=== PATIENT | male | born 1985 | race Two or more races ===

== ENCOUNTER 2016-12-04 20:17 | Emergency (ER) | payer MEDICAID, OTHER ==
[~2016-12-04] VITALS: Ht 165.1 cm; Wt 97.2 kg
[2016-12-04 20:25] VITALS: BP 114/84; PULSE 116; RESP 20; TEMP 98.8; O2SAT 96
[2016-12-04] MEDS ORDERED: SODIUM CHLORIDE 0.9% FLUSH 5 ML FLUSH IVF PRN (20:45)
[2016-12-04] MEDS ORDERED: SODIUM CHLOR 0.9% 1000 ML INJ 1,000 ML IV ONE (20:45)
[2016-12-04] MEDS ORDERED: PANTOPRAZOLE SODIUM 40 MG VIAL IV PUSH ONE (20:45)
[2016-12-04 21:07] LABS: AUTOMATED NEUTROPHIL # 8.4 TH/MM3 (1.8-7.7); BASOPHIL # 0.1 TH/MM3 (0-0.2); BASOPHIL % 0.5 % (0.0-2.0); EOSINOPHIL # 0.1 TH/MM3 (0-0.4); EOSINOPHIL % 1.2 % (0.0-4.0); HEMATOCRIT 44.9 % (39.0-51.0); HEMO FLAGS DIFF FINAL; LYMPH % 13.3 % (9.0-44.0); LYMPHOCYTE # 1.4 TH/MM3 (1.0-4.8); MEAN CELL VOLUME 90.5 FL (80.0-100.0); MEAN CORPUSCULAR HEMOGLOBIN 31.6 PG (27.0-34.0); MEAN CORPUSCULAR HGB CONC 34.9 % (32.0-36.0); MONO % 7.9 % (0.0-8.0); NEUT % 77.1 % (16.0-70.0); PLATELET COUNT 251 TH/MM3 (150-450); RED BLOOD COUNT 4.96 MIL/MM3 (4.50-5.90); RED CELL DISTRIBUTION WIDTH 12.3 % (11.6-17.2); WHITE BLOOD COUNT 10.9 TH/MM3 (4.0-11.0)
[2016-12-04 21:17] LABS: CHLORIDE 104 MEQ/L (98-107); POTASSIUM 3.4 MEQ/L (3.5-5.1); SODIUM (NA) 140 MEQ/L (136-145)
[2016-12-04 21:22] VITALS: BP 127/81; PULSE 94; RESP 20; O2SAT 98
[2016-12-04 21:22] LABS: ANION GAP 10 MEQ/L (5-15); BICARBONATE 26.2 MEQ/L (21.0-32.0); BLOOD UREA NITROGEN 12 MG/DL (7-18)
[2016-12-04 21:23] VITALS: BP 127/81; PULSE 94; RESP 20; O2SAT 98
[2016-12-04 21:25] LABS: ALT (GPT) 77 U/L (12-78); AST (GOT) 30 U/L (15-37); GLOMERULAR FILTRATION RATE 71 ML/MIN (>89)
[2016-12-04 21:26] LABS: TOTAL BILIRUBIN ADULT 1.4 MG/DL (0.2-1.0)
[2016-12-04 21:27] LABS: ALKALINE PHOSPHATASE 67 U/L (45-117)
[2016-12-04] MEDS ORDERED: IOHEXOL 350 MG/ML 10 ML VIAL (for RAD DIAG) IV ONE (22:06)
--- NOTE | 2016-12-04 22:42 | RADHPO ---
EXAM DATE/TIME: 12/04/2016 21:09 [facility] COMPARISON: No previous studies available for comparison. INDICATIONS : Complains of abdomen pain and blood in stool. MEDICAL HISTORY : None. SURGICAL HISTORY : None. ENCOUNTER: Initial ACUITY: 1 week PAIN SCORE: 10/10 LOCATION: Bilateral chest FINDINGS: A single view of the chest demonstrates the lungs to be symmetrically aerated without evidence of mas s, infiltrate or effusion. The cardiomediastinal contours are mildly prominent. Osseous structures a re intact. CONCLUSION: 1. Minimal basilar atelectasis. No effusion or pneumothorax. Mild cardiomegaly. Vinny Salter MD on December 04, 2016 at 22:40 Board Certified Radiologist. This report was verified electronically.
[2016-12-04 22:54] LABS: BLOOD, URINE SMALL (NEG); GLUCOSE,URINE NEG (NEG); KETONE, URINE NEG (NEG); NITRITE,URINE NEG (NEG); PH, URINE 5.5 (5.0-8.5)
--- NOTE | 2016-12-04 23:14 | RADHPO ---
EXAM DATE/TIME: 12/04/2016 21:50 [facility] COMPARISON: No previous studies available for comparison. INDICATIONS : Diffuse abdomen pain. IV CONTRAST: 81 cc Omnipaque 350 (iohexol) IV ORAL CONTRAST: No oral contrast ingested. RADIATION DOSE: 17.41 CTDIvol (mGy) MEDICAL HISTORY : None SURGICAL HISTORY : None. ENCOUNTER: Initial ACUITY: 1 day PAIN SCALE: 5/10 LOCATION: abdomen TECHNIQUE: Volumetric scanning of the abdomen and pelvis was performed. Using automated exposure control and ad justment of the mA and/or kV according to patient size, radiation dose was kept as low as reasonably achievable to obtain optimal diagnostic quality images. FINDINGS: Lung bases are clear. Mild fatty liver. Spleen, adrenals, kidneys and pancreas are unremarkable. No c alcified gallstones or biliary ductal dilatation. There is mural thickening of the colon especially the left colon characteristic of a mild colitis. CONCLUSION: 1. Mild mural thickening of the colon most characteristic of a mild colitis. Vinny Salter MD on December 04, 2016 at 23:09 Board Certified Radiologist. This report was verified electronically.
[2016-12-04 23:17] LABS: METHOD OF COLLECTION CLEAN CATCH; URINE COLOR YELLOW (YELLW/STRAW)
[2016-12-04 23:18] LABS: MUCUS URINE FEW /lpf (OCC); SQUAMOUS EPITHELIAL CELL URINE 0-5 /hpf (0-5)
[2016-12-04 23:19] LABS: WBC, URINE 0-2 /hpf (0-5)
[2016-12-04 23:20] LABS: COMMENT (UR) CULT NOT INDICATED; CULTURE IF INDICATED CULT NOT INDICATED
[2016-12-04] MEDS ORDERED: METR-1 PO (23:21)
--- NOTE | 2016-12-04 23:21 | PD ---
HPI Chief Complaint: GI Complaint Time Seen by Provider: 20:44 Travel History International Travel<30 days: No Contact w/Intl Traveler<30days: No Traveled to known affect area: No History of Present Illness HPI 31-year-old male presents to the emergency department for complaint of one week of intermittent red blood per rectum. Patient states discomfort is mild. It patient denies fever chills nausea vomiting or abdominal pain. Patient denies injury. Patient denies personal history of inflammatory bowel disease Crohn's ulcer colitis or family history of inflammatory bowel disease. Patient's had no dysuria frequency or urgency. No weight loss. Patient is unsure of precipitating event. Patient denies dietary indiscretion well water ingestion or foreign travel. Recent antibiotic use for diagnosis of folliculitis. [facility] Past Medical History Narrative Medical ADHD folliculitis no surgeries tobacco use nursing notes reviewed ADHD: Yes Diminished Hearing: No Integumentary: Yes (HX FOLLICULITIS) Tetanus Vaccination: Unknown Influenza Vaccination: No Social History Alcohol Use: No Tobacco Use: Yes Substance Use: No Allergies-Medications (Allergen,Severity, Reaction): Coded Allergies: No Known Allergies (Unverified , 12/04/16) Reported Meds & Prescriptions Reported Meds & Active Scripts Active Flagyl (Metronidazole) 500 Mg Tab 500 Mg PO QID 7 Days Review of Systems Except as stated in HPI: all other systems reviewed are Neg Physical Exam Narrative GENERAL: Well-developed well-nourished male in no acute distress no respiratory distress SKIN: Warm and dry. HEAD: Normocephalic. EYES: No scleral icterus. No injection or drainage. NECK: Supple, trachea midline. No JVD or lymphadenopathy. CARDIOVASCULAR: Regular rate and rhythm without murmurs, gallops, or rubs. RESPIRATORY: Breath sounds equal bilaterally. No accessory muscle use. GASTROINTESTINAL: Abdomen soft, non-tender, nondistended. Rectal exam: Normal sphincter tone no fissure no hemorrhoids scant dark blood noted on exam glove MUSCULOSKELETAL: No cyanosis, or edema. BACK: Nontender without obvious deformity. No CVA tenderness. Data Data Last Documented VS Vital Signs Date Time Temp Pulse Resp B/P Pulse Ox O2 Delivery O2 Flow Rate FiO2 12/04/16 23:45 91 20 116/57 98 12/04/16 20:25 98.8 Orders Complete Blood Count With Diff (12/04/16 20:44) Comprehensive Metabolic Panel (12/04/16 20:44) Urinalysis - C+S If Indicated (12/04/16 20:44) Lipase (12/04/16 20:44) Ct Abd/Pel W Iv Contrast(Rout) (12/04/16 ) Iv Access Insert/Monitor (12/04/16 20:44) Ecg Monitoring (12/04/16 20:44) Oximetry (12/04/16 20:44) Sodium Chloride 0.9% Flush (Ns Flush) (12/04/16 20:45) C Diff Toxin Pcr (12/04/16 20:44) Enteric Path (Stool) (12/04/16 20:44) Chest, Single Ap (12/04/16 20:44) Sodium Chlor 0.9% 1000 Ml Inj (Ns 1000 M (12/04/16 20:45) Pantoprazole Inj (Protonix Inj) (12/04/16 20:45) Iohexol 350 Inj (Omnipaque 350 Inj) (12/04/16 22:06) Labs Laboratory Tests Test 12/04/16 12/04/16 12/04/16 20:55 22:40 23:50 White Blood Count 10.9 TH/MM3 Red Blood Count 4.96 MIL/MM3 Hemoglobin 15.7 GM/DL Hematocrit 44.9 % Mean Corpuscular Volume 90.5 FL Mean Corpuscular Hemoglobin 31.6 PG Mean Corpuscular Hemoglobin 34.9 % Concent Red Cell Distribution Width 12.3 % Platelet Count 251 TH/MM3 Mean Platelet Volume 7.7 FL Neutrophils (%) (Auto) 77.1 % Lymphocytes (%) (Auto) 13.3 % Monocytes (%) (Auto) 7.9 % Eosinophils (%) (Auto) 1.2 % Basophils (%) (Auto) 0.5 % Neutrophils # (Auto) 8.4 TH/MM3 Lymphocytes # (Auto) 1.4 TH/MM3 Monocytes # (Auto) 0.9 TH/MM3 Eosinophils # (Auto) 0.1 TH/MM3 Basophils # (Auto) 0.1 TH/MM3 CBC Comment DIFF FINAL Differential Comment Sodium Level 140 MEQ/L Potassium Level 3.4 MEQ/L Chloride Level 104 MEQ/L Carbon Dioxide Level 26.2 MEQ/L Anion Gap 10 MEQ/L Blood Urea Nitrogen 12 MG/DL Creatinine 1.20 MG/DL Estimat Glomerular Filtration 71 ML/MIN Rate Random Glucose 102 MG/DL Calcium Level 8.6 MG/DL Total Bilirubin 1.4 MG/DL Aspartate Amino Transf 30 U/L (AST/SGOT) Alanine Aminotransferase 77 U/L (ALT/SGPT) Alkaline Phosphatase 67 U/L Total Protein 7.9 GM/DL Albumin 4.0 GM/DL Lipase 110 U/L Urine Collection Type CLEAN CATCH Urine Color YELLOW Urine Turbidity CLEAR Urine pH 5.5 Urine Specific [place] GREATER THAN 1.035 Urine Protein NEG mg/dL Urine Glucose (UA) NEG mg/dL Urine Ketones NEG mg/dL Urine Occult Blood SMALL Urine Nitrite NEG Urine Bilirubin NEG Urine Leukocyte Esterase NEG Urine RBC /hpf Urine WBC 0-2 /hpf Urine Squamous Epithelial 0-5 /hpf Cells Urine Mucus FEW /lpf Microscopic Urinalysis Comment CULT NOT INDICATED Stool C. difficile Toxin (PCR) NEGATIVE Stl C. difficile Toxin PRESUMPTIVE Epiderm 027 NEGATIVE MDM Medical Decision Making Medical Screen Exam Complete: Yes Emergency Medical Condition: Yes Medical Record Reviewed: Yes Interpretation(s) Laboratory Tests Test 12/04/16 12/04/16 12/04/16 20:55 22:40 23:50 White Blood Count 10.9 TH/MM3 Red Blood Count 4.96 MIL/MM3 Hemoglobin 15.7 GM/DL Hematocrit 44.9 % Mean Corpuscular Volume 90.5 FL Mean Corpuscular Hemoglobin 31.6 PG Mean Corpuscular Hemoglobin 34.9 % Concent Red Cell Distribution Width 12.3 % Platelet Count 251 TH/MM3 Mean Platelet Volume 7.7 FL Neutrophils (%) (Auto) 77.1 % Lymphocytes (%) (Auto) 13.3 % Monocytes (%) (Auto) 7.9 % Eosinophils (%) (Auto) 1.2 % Basophils (%) (Auto) 0.5 % Neutrophils # (Auto) 8.4 TH/MM3 Lymphocytes # (Auto) 1.4 TH/MM3 Monocytes # (Auto) 0.9 TH/MM3 Eosinophils # (Auto) 0.1 TH/MM3 Basophils # (Auto) 0.1 TH/MM3 CBC Comment DIFF FINAL Differential Comment Sodium Level 140 MEQ/L Potassium Level 3.4 MEQ/L Chloride Level 104 MEQ/L Carbon Dioxide Level 26.2 MEQ/L Anion Gap 10 MEQ/L Blood Urea Nitrogen 12 MG/DL Creatinine 1.20 MG/DL Estimat Glomerular Filtration 71 ML/MIN Rate Random Glucose 102 MG/DL Calcium Level 8.6 MG/DL Total Bilirubin 1.4 MG/DL Aspartate Amino Transf 30 U/L (AST/SGOT) Alanine Aminotransferase 77 U/L (ALT/SGPT) Alkaline Phosphatase 67 U/L Total Protein 7.9 GM/DL Albumin 4.0 GM/DL Lipase 110 U/L Urine Collection Type CLEAN CATCH Urine Color YELLOW Urine Turbidity CLEAR Urine pH 5.5 Urine Specific [place] GREATER THAN 1.035 Urine Protein NEG mg/dL Urine Glucose (UA) NEG mg/dL Urine Ketones NEG mg/dL Urine Occult Blood SMALL Urine Nitrite NEG Urine Bilirubin NEG Urine Leukocyte Esterase NEG Urine RBC /hpf Urine WBC 0-2 /hpf Urine Squamous Epithelial 0-5 /hpf Cells Urine Mucus FEW /lpf Microscopic Urinalysis Comment CULT NOT INDICATED Stool C. difficile Toxin (PCR) NEGATIVE Stl C. difficile Toxin PRESUMPTIVE Epiderm 027 NEGATIVE Last Impressions Chest X-Ray 12/04/[id number] Signed Impressions: Service Date/Time: Sunday, December 04, 2016 21:09 - CONCLUSION: 1. Minimal basilar atelectasis. No effusion or pneumothorax. Mild cardiomegaly. Vinny Salter MD Abdomen/Pelvis CT 12/04/16 0000 Signed Impressions: Service Date/Time: Sunday, December 04, 2016 21:50 - CONCLUSION: 1. Mild mural thickening of the colon most characteristic of a mild colitis. Vinny Salter MD Differential Diagnosis Rectal bleeding, colitis, diverticulitis, upper GI bleed, fissure, hemorrhoid Narrative Course IV access obtained specimens collected and sent for resulting lab values grossly normal range CT abdomen and pelvis consistent with colitis Patient unable to produce provide stool specimen; patient given fluid hydration by mouth to attempt to stimulate peristalsis Stool specimen obtained patient is stable for outpatient management In view of patient reporting history of recent antibiotic use and colitis by history and by imaging specimen sent for enteric pathogens and for C. difficile toxin patient prescribed Flagyl and encouraged to follow-up with primary care provider [facility] Point of Care Internal Pos. & Neg. Controls: Passed Fecal Specimen Occult Blood: Positive Diagnosis Primary Impression: Colitis Referrals: Primary Care Physician call for appointment Patient Instructions: General Instructions Additional Instructions: Follow clear liquid diet for next 12-24 hours advance diet as tolerated to bland /Ema diet and regular diet avoiding fried and fatty foods [place] follow-up with primary care physician Take medication as prescribed Acetaminophen/Tylenol as needed for fever 100.4F or greater Avoid nonsteroidal anti-inflammatory medications such as ibuprofen/Advil/Motrin/ Naprosyn/naproxen/Aleve No work times one day Return to the emergency department for any concerns or change in condition Med/Other Pt SpecificInfo: Prescription(s) given Scripts Metronidazole (Flagyl)500 Mg [id number] Mg PO QID 7 Days Ref 0 Prov:Alyx Velazquez MD 12/04/16 Disposition: 01 DISCHARGE HOME Condition: Stable Alyx Velazquez MD Dec 04, 2016 23:21
[2016-12-04 23:45] VITALS: BP 116/57
[2016-12-05 08:54] LABS: C. DIFF EPI 027 PRESUMPTIVE NEGATIVE (NEGATIVE); C. DIFF TOXIN PCR NEGATIVE (NEGATIVE)
== END 2016-12-04 23:59 | disposition home or self-care (01) ==
LOC: PHED 20:17
DX: K52.9 Noninfective gastroenteritis and colitis, unspecified (principal); Z72.0 Tobacco use
CPT/HCPCS: 71010; 74177; 80053; 81001; 83690; 85025; 87493; 87506; 96374; 99284; C9113; J7030; Q9967

== ENCOUNTER 2017-04-07 20:18 | Emergency (ER) | payer MEDICAID ==
[~2017-04-07] VITALS: Ht 165.1 cm; Wt 99.3 kg
[~2017-04-07 20:18] MED LIST: METR-1 PO
[2017-04-07 20:40] VITALS: BP 128/96; PULSE 111; RESP 16; TEMP 98.4; O2SAT 98
[2017-04-07 21:05] VITALS: BP 144/72; PULSE 95; RESP 16; O2SAT 96
--- NOTE | 2017-04-07 21:19 | PD ---
HPI Chief Complaint: Skin Problem Time Seen by Provider: 20:59 Travel History International Travel<30 days: No Contact w/Intl Traveler<30days: No Traveled to known affect area: No PFSH Past Medical History ADHD: Yes Diminished Hearing: No Integumentary: Yes (HX FOLLICULITIS) Immunizations Current: Yes Tetanus Vaccination: < 5 Years Influenza Vaccination: No Past Surgical History Surgical History: No Previous Surgery Social History Alcohol Use: No Tobacco Use: Yes (2 CIGS) Substance Use: No Allergies-Medications (Allergen,Severity, Reaction): Coded Allergies: No Known Allergies (Unverified , 04/07/17) Reported Meds & Prescriptions Reported Meds & Active Scripts Active No Active Prescriptions or Reported Medications Data Data Last Documented VS Vital Signs Date Time Temp Pulse Resp B/P Pulse Ox O2 Delivery O2 Flow Rate FiO2 04/07/17 21:05 95 16 144/72 96 Room Air 04/07/17 20:[address] Abd/Pel W Iv Contrast(Rout) (04/07/17 ) Complete Blood Count With Diff (04/07/17 21:03) Comprehensive Metabolic Panel (04/07/17 21:03) Iv Access Insert/Monitor (04/07/17 21:03) MDM Scripts No Active Prescriptions or Reported Meds Anthony Cerna MD April 07, 2017 21:19
[2017-04-07 21:25] LABS: AUTOMATED NEUTROPHIL # 8.4 TH/MM3 (1.8-7.7); BASOPHIL # 0.1 TH/MM3 (0-0.2); BASOPHIL % 1.1 % (0.0-2.0); EOSINOPHIL # 0.1 TH/MM3 (0-0.4); HEMATOCRIT 46.9 % (39.0-51.0); HEMO FLAGS DIFF FINAL; LYMPH % 18.4 % (9.0-44.0); LYMPHOCYTE # 2.2 TH/MM3 (1.0-4.8); MEAN CELL VOLUME 89.5 FL (80.0-100.0); MEAN CORPUSCULAR HEMOGLOBIN 30.6 PG (27.0-34.0); MEAN CORPUSCULAR HGB CONC 34.2 % (32.0-36.0); MONO % 8.2 % (0.0-8.0); NEUT % 71.3 % (16.0-70.0); PLATELET COUNT 244 TH/MM3 (150-450); RED BLOOD COUNT 5.24 MIL/MM3 (4.50-5.90); RED CELL DISTRIBUTION WIDTH 12.4 % (11.6-17.2); WHITE BLOOD COUNT 11.8 TH/MM3 (4.0-11.0)
[2017-04-07 21:35] LABS: CHLORIDE 106 MEQ/L (98-107); POTASSIUM 3.6 MEQ/L (3.5-5.1); SODIUM (NA) 141 MEQ/L (136-145)
[2017-04-07 21:39] LABS: ANION GAP 8 MEQ/L (5-15); BICARBONATE 27.3 MEQ/L (21.0-32.0); BLOOD UREA NITROGEN 12 MG/DL (7-18)
[2017-04-07 21:42] LABS: ALT (GPT) 92 U/L (12-78); AST (GOT) 39 U/L (15-37); GLOMERULAR FILTRATION RATE 71 ML/MIN (>89)
[2017-04-07 21:44] LABS: TOTAL BILIRUBIN ADULT 0.9 MG/DL (0.2-1.0)
[2017-04-07 21:45] LABS: ALKALINE PHOSPHATASE 64 U/L (45-117)
--- NOTE | 2017-04-07 22:11 | PD ---
HPI Chief Complaint: Skin Problem Time Seen by Provider: 21:00 Travel History International Travel<30 days: No Contact w/Intl Traveler<30days: No Traveled to known affect area: No History of Present Illness HPI 31 year-old male presents to the emergency room for evaluation of an abscess to his buttocks that has been there for the past week. Patient states he has had an abscess in the same spot over the past year that comes and goes. It usually improves with antibiotics but will come back short time later. He has never had it operated on or incised but picks at it himself. States about 5 days ago , this abscess began spontaneously bleeding and draining. Since that it seems to be enlarging and extending into his rectum. He has pain with bowel movements. Patient states he notices blood on the toilet paper when he wipes. He denies fever, chills, nausea, and vomiting. Tetanus is up-to-date. Denies chronic medical conditions or daily medications. PFSH Past Medical History ADHD: Yes Diminished Hearing: No Integumentary: Yes (HX FOLLICULITIS) Immunizations Current: Yes Tetanus Vaccination: < 5 Years Influenza Vaccination: No Past Surgical History Surgical History: No Previous Surgery Social History Alcohol Use: No Tobacco Use: Yes (2 CIGS) Substance Use: No Allergies-Medications (Allergen,Severity, Reaction): Coded Allergies: No Known Allergies (Unverified , 04/07/17) Reported Meds & Prescriptions Reported Meds & Active Scripts Active Bactrim DS (Sulfamethoxazole-Trimethoprim) 800-160 Mg Tab 1 Tab PO BID Cipro (Ciprofloxacin HCl) 250 Mg Tab 500 Mg PO Q12HR 10 Days [place] (Hydrocodone-Acetaminophen) 5-325 mg Tab 1 Tab PO Q6H PRN Review of Systems Except as stated in HPI: all other systems reviewed are Neg Physical Exam Narrative GENERAL: Well-nourished, well-developed male in no acute distress. Afebrile. Ambulatory. SKIN: Focused skin assessment warm/dry. There is an indurated area in the left buttocks which measures about 4 cm in diameter. There is fluctuance and spontaneous drainage 4 cm lateral to the anus. There is a zone of inflammation around it but no lymphangitis. HEAD: Normocephalic. EYES: No scleral icterus. No injection or drainage. NECK: Supple, trachea midline. No JVD or lymphadenopathy. CARDIOVASCULAR: Regular rate and rhythm without murmurs, gallops, or rubs. RESPIRATORY: Breath sounds equal bilaterally. No accessory muscle use. RECTAL EXAM: Stool is brown. There is tenderness to palpation and induration of the anus at the 9 o'clock position. Data Data Last Documented VS Vital Signs Date Time Temp Pulse Resp B/P Pulse Ox O2 Delivery O2 Flow Rate FiO2 04/07/17 21:05 95 16 144/72 96 Room Air 04/07/17 20:[address] Abd/Pel W Iv Contrast(Rout) (04/07/17 ) Complete Blood Count With Diff (04/07/17 21:03) Comprehensive Metabolic Panel (04/07/17 21:03) Iv Access Insert/Monitor (04/07/17 21:03) Iohexol 350 Inj (Omnipaque 350 Inj) (04/07/17 22:32) Labs Laboratory Tests Test 04/07/17 21:10 White Blood Count 11.8 TH/MM3 Red Blood Count 5.24 MIL/MM3 Hemoglobin 16.1 GM/DL Hematocrit 46.9 % Mean Corpuscular Volume 89.5 FL Mean Corpuscular Hemoglobin 30.6 PG Mean Corpuscular Hemoglobin 34.2 % Concent Red Cell Distribution Width 12.4 % Platelet Count 244 TH/MM3 Mean Platelet Volume 7.9 FL Neutrophils (%) (Auto) 71.3 % Lymphocytes (%) (Auto) 18.4 % Monocytes (%) (Auto) 8.2 % Eosinophils (%) (Auto) 1.0 % Basophils (%) (Auto) 1.1 % Neutrophils # (Auto) 8.4 TH/MM3 Lymphocytes # (Auto) 2.2 TH/MM3 Monocytes # (Auto) 1.0 TH/MM3 Eosinophils # (Auto) 0.1 TH/MM3 Basophils # (Auto) 0.1 TH/MM3 CBC Comment DIFF FINAL Differential Comment Sodium Level 141 MEQ/L Potassium Level 3.6 MEQ/L Chloride Level 106 MEQ/L Carbon Dioxide Level 27.3 MEQ/L Anion Gap 8 MEQ/L Blood Urea Nitrogen 12 MG/DL Creatinine 1.20 MG/DL Estimat Glomerular Filtration 71 ML/MIN Rate Random Glucose 105 MG/DL Calcium Level 9.2 MG/DL Total Bilirubin 0.9 MG/DL Aspartate Amino Transf 39 U/L (AST/SGOT) Alanine Aminotransferase 92 U/L (ALT/SGPT) Alkaline Phosphatase 64 U/L Total Protein 7.5 GM/DL Albumin 3.9 GM/DL MDM Medical Decision Making Medical Screen Exam Complete: Yes Emergency Medical Condition: Yes Medical Record Reviewed: Yes Differential Diagnosis perirectal abscess, cellulitis, MRSA Narrative Course 31-year-old male presents to the emergency room for evaluation of perirectal abscess that is ongoing for the past week. This is a chronic condition that flares occasionally. Patient denies fever, chills, nausea, vomiting. Vital signs stable. Patient is afebrile and well-appearing in the emergency room. During rectal exam there is tender indurated area at the 9 o'clock position of the anus. There is fluctuance with spontaneous drainage approximately 4 cm lateral to the area of induration. Exam performed in the presence of a nurse. CBC and CMP are essentially unremarkable. There is a very mild leukocytosis. CT of the abdomen and pelvis shows possible perirectal abscess. I spoke to my attending physician who spoke to the radiologist to clarify the location. Upon review, it seems to be more perianal and perirectal. Patient is nontoxic- appearing. He will be treated empirically with Cipro and Bactrim and told to follow up with a surgeon for reevaluation. He understands and agrees to plan. Diagnosis Primary Impression: Perianal abscess Referrals: Rubens Zheng MD Primary Care Physician Patient Instructions: Abscess (ED), General Instructions Additional Instructions: Rest and drink plenty of fluids. Take Bactrim, Cipro as directed, until gone. Lortab as directed, as needed for pain. Do not drink alcohol or drive while taking this medication. Follow up with a primary care physician. Return to emergency room for worsening symptoms, as discussed. Med/Other Pt SpecificInfo: Prescription(s) given Scripts Sulfamethoxazole-Trimethoprim (Bactrim DS)800-160 Mg Tab1 Tab PO BID #20 TAB Ref 0 Prov:Anthony Cerna MD 04/07/17 Ciprofloxacin (Cipro)250 Mg [id number] Mg PO Q12HR 10 Days Ref 0 Prov:Anthony Cerna MD 04/07/17 Hydrocodone-Acetaminophen ([place])5-325 mg Tab1 Tab PO Q6H PRN (PAIN) #10 TAB Ref 0 Prov:Anthony Cerna MD 04/07/17 Disposition: 01 DISCHARGE HOME Condition: Stable Sonya Verde April 07, 2017 22:11
[2017-04-07] MEDS ORDERED: IOHEXOL 350 MG/ML 10 ML VIAL (for RAD DIAG) IV ONE (22:32)
--- NOTE | 2017-04-07 22:53 | RADHPO ---
EXAM DATE/TIME: 04/07/2017 22:03 [facility] COMPARISON: CT ABDOMEN & PELVIS W CONTRAST, December 04, 2016, 21:50. INDICATIONS : Perirectal pain, abscess. IV CONTRAST: 93 cc Omnipaque 350 (iohexol) IV ORAL CONTRAST: No oral contrast ingested. RADIATION DOSE: 18.84 CTDIvol (mGy) MEDICAL HISTORY : None SURGICAL HISTORY : None. ENCOUNTER: Initial ACUITY: 1 year PAIN SCALE: 5/10 LOCATION: Pelvis TECHNIQUE: Volumetric scanning of the abdomen and pelvis was performed. Using automated exposure control and ad justment of the mA and/or kV according to patient size, radiation dose was kept as low as reasonably achievable to obtain optimal diagnostic quality images. FINDINGS: The lung bases are clear. There is marked fatty replacement to the liver. Spleen, pancreas, adrenal glands and kidneys are unremarkable. There is symmetrical renal function. Region of the cecum and terminal ileum are unremarkable. There is no evidence for diverticulitis. In the pelvis, there is very mild induration in the perirectal fat with a small 2 cm perirectal absce ss confined to the fat. Review of bone windows reveals only degenerative changes. CONCLUSION: Very small perirectal abscess as described above on the right. Grupo Koehler MD FACR on April 07, 2017 at 22:43 Board Certified Radiologist. This report was verified electronically.
--- NOTE | 2017-04-07 23:04 | PD ---
Data Data Last Documented VS Vital Signs Date Time Temp Pulse Resp B/P Pulse Ox O2 Delivery O2 Flow Rate FiO2 04/07/17 21:05 95 16 144/72 96 Room Air 04/07/17 20:[address] Abd/Pel W Iv Contrast(Rout) (04/07/17 ) Complete Blood Count With Diff (04/07/17 21:03) Comprehensive Metabolic Panel (04/07/17 21:03) Iv Access Insert/Monitor (04/07/17 21:03) Iohexol 350 Inj (Omnipaque 350 Inj) (04/07/17 22:32) Labs Laboratory Tests Test 04/07/17 21:10 White Blood Count 11.8 TH/MM3 Red Blood Count 5.24 MIL/MM3 Hemoglobin 16.1 GM/DL Hematocrit 46.9 % Mean Corpuscular Volume 89.5 FL Mean Corpuscular Hemoglobin 30.6 PG Mean Corpuscular Hemoglobin 34.2 % Concent Red Cell Distribution Width 12.4 % Platelet Count 244 TH/MM3 Mean Platelet Volume 7.9 FL Neutrophils (%) (Auto) 71.3 % Lymphocytes (%) (Auto) 18.4 % Monocytes (%) (Auto) 8.2 % Eosinophils (%) (Auto) 1.0 % Basophils (%) (Auto) 1.1 % Neutrophils # (Auto) 8.4 TH/MM3 Lymphocytes # (Auto) 2.2 TH/MM3 Monocytes # (Auto) 1.0 TH/MM3 Eosinophils # (Auto) 0.1 TH/MM3 Basophils # (Auto) 0.1 TH/MM3 CBC Comment DIFF FINAL Differential Comment Sodium Level 141 MEQ/L Potassium Level 3.6 MEQ/L Chloride Level 106 MEQ/L Carbon Dioxide Level 27.3 MEQ/L Anion Gap 8 MEQ/L Blood Urea Nitrogen 12 MG/DL Creatinine 1.20 MG/DL Estimat Glomerular Filtration 71 ML/MIN Rate Random Glucose 105 MG/DL Calcium Level 9.2 MG/DL Total Bilirubin 0.9 MG/DL Aspartate Amino Transf 39 U/L (AST/SGOT) Alanine Aminotransferase 92 U/L (ALT/SGPT) Alkaline Phosphatase 64 U/L Total Protein 7.5 GM/DL Albumin 3.9 GM/DL MDM Supervised Visit with ALTAGRACIA: Yes Narrative Course I, Dr. Cerna, have reviewed the advance practice practitioner's documentation and am in agreement, met with the patient face to face, made the diagnosis, and the medical decision making was done by me. *My assessment and Findings: Patient seen and examined by me in addition to the ALTAGRACIA. Patient has a very barky piece sized area of what appears to be abscess on the buttock. His fairly removed from the rectum itself. Review the CAT scan appears a tracking toward the anal verge but does not appear to be crossing the verge and the rectum. Dr. Koehler read the CAT scan as a perirectal abscess. I've called Dr. Salter clarifying he states it is very superficial and located within the fat. Appears to be more of a perianal abscess. The abscess itself is very small. There may be a fistula beginning to form however the patient is nontoxic and very well-appearing. He states that he has been treated with antibiotic multiple times in the past and it goes away and then comes back within 6 months. I recommended that he follow up with surgeon is been given a referral. We offered him drainage in the emergency department but at this time he would like to try antibiotics alone. Discussed return to ED criteria. Diagnosis Primary Impression: Perianal abscess Referrals: Primary Care Physician Patient Instructions: General Instructions, Abscess (ED) Additional Instruction: Rest and drink plenty of fluids. Take Bactrim as directed, until gone. Follow up with a primary care physician. Return to emergency room for worsening symptoms, as discussed. Scripts Sulfamethoxazole-Trimethoprim (Bactrim DS)800-160 Mg Tab1 Tab PO BID #20 TAB Ref 0 Prov:Anthony Cerna MD 04/07/17 Ciprofloxacin (Cipro)250 Mg [id number] Mg PO Q12HR 10 Days Ref 0 Prov:Anthony Cerna MD 04/07/17 Hydrocodone-Acetaminophen ([place])5-325 mg Tab1 Tab PO Q6H PRN (PAIN) #10 TAB Ref 0 Prov:Anhtony Cerna MD 04/07/17 Disposition: 01 DISCHARGE HOME Condition: Stable Anthony Cerna MD April 07, 2017 23:04
[2017-04-07] MEDS ORDERED: CIPR250T52 PO (23:06)
[2017-04-07] MEDS ORDERED: BACT800T5 PO (23:06)
[2017-04-07] MEDS ORDERED: NORC5TAB PO (23:06)
== END 2017-04-07 23:44 | disposition home or self-care (01) ==
LOC: PHEFT 20:18
DX: K61.0 Anal abscess (principal)
CPT/HCPCS: 74177; 80053; 85025; 99285; Q9967

== ENCOUNTER 2017-12-24 04:00 | Emergency (ER) | payer MEDICAID ==
[~2017-12-24] VITALS: Ht 165.1 cm; Wt 100.5 kg
[~2017-12-24 04:00] MED LIST changes: +BACT800T5 PO; +CIPR250T52 PO; -METR-1 PO; +NORC5TAB PO
[2017-12-24 04:03] VITALS: BP 133/63; PULSE 91; RESP 18; TEMP 97.5; O2SAT 97
[2017-12-24 04:13] VITALS: BP 133/63; PULSE 91; RESP 18; TEMP 97.1; O2SAT 97
[2017-12-24] MEDS ORDERED: traMADol HCL 50 MG TAB PO ONE (04:30)
[2017-12-24] MEDS ORDERED: IBUPROFEN 800 MG TAB PO ONE (04:30)
--- NOTE | 2017-12-24 04:34 | PD ---
HPI Chief Complaint: Musculoskeletal Complaint Time Seen by Provider: 04:28 Travel History International Travel<30 days: No Contact w/Intl Traveler<30days: No Traveled to known affect area: No History of Present Illness HPI 32-year-old male presents to the emergency department for greater than 1 week of right great toe pain. Patient denies any injury. She was recently seen at [facility] had imaging study performed which revealed no acute bony abnormality is diagnosed with synovitis was placed on a 7 day course of steroid and continues to have pain. There is no redness no swelling no point tenderness no ascending erythema no fever no chills and again patient denies injury. No prior history of gouty arthritis. Patient is otherwise in good health and takes no medications on a regular basis. Patient rates pain 7/10 in intensity. Weightbearing and attempted range of motion increases pain which is localized to the first MTP. PFSH Past Medical History Narrative Medical ADHD, folliculitis, tobacco use; nursing notes reviewed ADHD: Yes Diminished Hearing: No Integumentary: Yes (HX FOLLICULITIS) Immunizations Current: Yes Social History Alcohol Use: No Tobacco Use: Yes (2 CIGS) Substance Use: No Allergies-Medications (Allergen,Severity, Reaction): Coded Allergies: No Known Allergies (Unverified Adverse Reaction, Unknown, 12/24/17) Reported Meds & Prescriptions Reported Meds & Active Scripts Active Bactrim DS (Sulfamethoxazole-Trimethoprim) 800-160 Mg Tab 1 Tab PO BID Cipro (Ciprofloxacin HCl) 250 Mg Tab 500 Mg PO Q12HR 10 Days [place] (Hydrocodone-Acetaminophen) 5-325 mg Tab 1 Tab PO Q6H PRN Narrative Medication Prednisone Review of Systems Except as stated in HPI: all other systems reviewed are Neg Physical Exam Narrative GENERAL: Well-developed well-nourished male no acute distress or respiratory distress SKIN: Warm and dry. HEAD: Normocephalic. EYES: No scleral icterus. No injection or drainage. NECK: Supple, trachea midline. No JVD or lymphadenopathy. CARDIOVASCULAR: Regular rate and rhythm without murmurs, gallops, or rubs. RESPIRATORY: Breath sounds equal bilaterally. No accessory muscle use. GASTROINTESTINAL: Abdomen soft, non-tender, nondistended. MUSCULOSKELETAL: No cyanosis, or edema. Attention right great toe no redness no induration no increased warmth no pallor no coolness brisk capillary refill less than 2 seconds mild tenderness to direct palpation over the first MTP with slight decreased active range of motion, no ascending erythema, no ecchymosis, intact sensation. Data Data Last Documented VS Vital Signs Date Time Temp Pulse Resp B/P (MAP) Pulse Ox O2 Delivery O2 Flow Rate FiO2 12/24/17 04:13 97.1 91 18 133/63 (86) 97 Orders Orders Tramadol (Ultram) (12/24/17 04:30) Ibuprofen (Motrin) (12/24/17 04:30) MDM Medical Decision Making Medical Screen Exam Complete: Yes Emergency Medical Condition: Yes Medical Record Reviewed: Yes Differential Diagnosis Great toe pain arthritis gouty arthritis tendinitis synovitis; occult fracture unlikely septic joint Narrative Course Animated none toxic appearing male in no acute distress or respiratory distress with probable tendinitis of the great toe versus gouty arthritis without improvement after 1 week of prednisone therapy will be referred to podiatry as currently has already had imaging study and medication intervention without improvement and without evidence of abnormality. 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
[2017-12-28] MEDS ORDERED: TRAM50TA PO (01:31)
== END 2017-12-24 04:55 | disposition home or self-care (01) ==
LOC: PHED 04:00
DX: M79.674 Pain in right toe(s) (principal); Z72.0 Tobacco use; Z86.59 Personal history of other mental and behavioral disorders; Z87.2 Personal history of diseases of the skin and subcutaneous tissue
CPT/HCPCS: 99283